=== PATIENT | male | born 1985 | race Caucasian/White ===

== ENCOUNTER → 2016-04-10 | Outpatient (CLI) | payer OTHER ==
--- NOTE | 2016-04-10 11:17 | ST Modified Barium Swallow ---
Recommendation - Recommendations Recommendations: 1) Continue current diet. 2) Eating and drinking fully upright at 90 degrees. 3) Small swallows of thin liquids to reduce penetration of liquids into nasopharynx. SUMMARY: Safe and effective swallow observed-no penetration or aspiration into airway. No oral or pharyngeal residuals observed. During large sequential swallows of thin by straw a mild column of barium observed between the soft palate and pharyngeal wall into nasopharynx. No penetration into nasopharynx on small swallows of thin. Communicated results to MD via email. Medical Diagnoses - Medical Diagnoses Medical Diagnosis Description & ICD-10 Code(s): dysphagia unspecified Other Medical Diagnoses/Co-Morbidities: reflux, tonsils removed pt reports due to abscess, pt also reports possibly had adenoids removed - ICD-10 Tx Diagnosis Coding (1) Dysphagia, pharyngeal phase ICD-10 Code(s): R13.13 - DYSPHAGIA, PHARYNGEAL PHASE ST Modified Barium Swallow - General Date: 04/10/16 Referring Physician: Dr Christianson Risks/Precautions: None Date of Onset: 04/11/12 Reason for Referral: dysphagia - History History obtained from: Patient -: Medical - Pt reports history of tonsil removal due to abscess. Pt states after removal of tonsils having liquids "coming out of nose". Pt reports happens mostly when drinking when laying down or tilting head back. Pt denies coughing of choking with eating. States no history of PNA or bronchitis. Reports globus sensation in neck, states feels like phlem in throat that he "can 't cough up". Medications: nexium Allergies: KNA - Functional Status Prior Functional Status: INDEPENDENT: feeding Current Functional Limitations: feeding - Subjective Patient/caregiver goal(s): safe swallow Cognitive-Linguistic Function: WNL Speech Intelligibility: WNL Current Nutritional Means: PO Current PO diet: Regular Current symptoms: other - liquids out of nose Pain: 0/5 - Objective Assessment: Upright, Left Lateral - Food Trials Used Food trials used: Thin liquids, Pureed, Regular The patient: Was Able to Self Feed - Oral-Motor Skills Dentition: Full Velo-pharyngeal function: Hypernasal - intermittently Laryngeal Function: Volitional Cough, Volitional Swallow - Assessment Oral prep: Normal Labial closure: Adequate Leakage: None Mastication: Adequate Lingual Movement: Normal Oral stage: Normal for this Procedure - Pharyngeal Stage Initiation of Pharyngeal Stage Reflex: Normal Decreased laryngeal elevation: No Reduced Velopharyngeal Closure: yes - mild Reduced pressure generation: No reduced tongue-based retraction: No Pre-swallow pooling in valleculae: None Pre-Swallow pooling in pyriforms: None Reduced Thyro-Hyoid approximation: No Reduced epiglottic excursion: No Reduced pharyngeal peristalsis/contraction: No Post-swallow residulas vallecular: None Post-Swallow residuals in pyriforms: None Reduced Cricopharyngeal opening: No - Fall Risk Assessment Medications/Conditions that increase fall risks include: Antidepressants, sedatives, anti-arrhythmic, diuretic, benzodiazipenes, neuroleptics. BP regulation problems, cardiac problems, balance or gait deficits, neurological problems. Is patient considered at risk for falls: no Fall Risk Actions Taken: No action needed - Behavioral Observations During evaluation process patient: was pleasant, was cooperative, able to answer questions, provided medical history - Treatment / Educational Needs: Treatment/Education Needs: Treatment consisted of patient education on the role of the Speech Pathologist. Patient's plan of care and golas were communicated as well as scheduling and attendance policies. Recommendations for initial home program were shared. Patient demonstrated understanding and verbalized agreement. - Impression/Summary Laryngeal Penetration: No Tracheal Aspiration: no Patient presents with: Pharyngeal stage dysph. - mild Risk of Aspiration: Minimal Risk of nutritional compromise: None - Recommendations NPO: no Solid diet recommendations: Regular Liquid Diet Modification: Thin Strict aspiration precautions: No Pt/Family education and followup with MD: Yes Recommended techniques: Fully Upright During Meal Supervision: Independent Information, Precautions and Recommendations: Patient (Verbal) - Time Total Time: 15 - Plan of Care Strategies to optimize patient understanding include:: ongoing assessment of educational needs, implementation of educational strategies, and re-education. - - -: Thank you for the opportunity to work with this patient and his/her family. Should you have any questions about this patient's plan or progress, I can be reached at [phone]. Charge G Code? - - -: No
== END ==
LOC: RAD 07:27
PROVIDERS: ATTEND Otolaryngology
DX: R13.13 Dysphagia, pharyngeal phase (principal)
CPT/HCPCS: 74230

== ENCOUNTER → 2017-09-26 | Outpatient (CLI) | payer OTHER ==
--- NOTE | 2017-09-26 10:16 | RADIOLOGY REPORT (SQ) ---
EXAM DESCRIPTION: BARIUM SWALLOW ESOPHAGUS COMPLETED DATE/TIME: 09/26/2017 9:43 am REASON FOR STUDY: DYSPHAGIA COMPARISON: Cookie swallow 04/10/2016 (video assisted speech pathology swallowing evaluation) TECHNIQUE: Under fluoroscopic guidance, patient ingested effervescent granules followed by thick and thin barium. Fluoroscopic spot images and routine radiographic images acquired and stored on PACS. 12 MM BARIUM TABLET GIVEN: Yes. No significant delay in passage. LIMITATIONS: None. FLUOROSCOPY TIME: FLUORO TIME: 2 minutes 2 seconds 15 series of digital images saved to PACS. FINDINGS: NEUROMUSCULAR COORDINATION OF SWALLOW: Normal. No aspiration. ESOPHAGEAL MOTILITY: Normal peristalsis. No esophageal spasm. ESOPHAGEAL MUCOSA: Normal mucosa without masses or ulceration. GASTRO-ESOPHAGEAL JUNCTION: No hiatal hernia. However, there is gastroesophageal reflux to the cervi elke esophagus. NON-GI TRACT STRUCTURES: No significant finding. OTHER: No other significant finding. IMPRESSION: Gastroesophageal reflux to the cervical esophagus. No distal esophageal stricture or gr oss mucosal abnormality. COMMENT: Quality ID [id number]: Final reports for procedures using fluoroscopy that document radiation exp osure indices, or exposure time and number of fluorographic images (if radiation exposure indices are not available) TECHNICAL DOCUMENTATION: JOB ID: [id number] [employer]- All Rights Reserved Reading location - IP/workstation name: [email or web address]
== END ==
LOC: RAD 09:05
PROVIDERS: ATTEND Otolaryngology
DX: R13.10 Dysphagia, unspecified (principal)
CPT/HCPCS: 74220